=== PATIENT | female | born 1930 | race Caucasian/White ===

== ENCOUNTER 2016-08-26 10:46 | Outpatient (CLI) | payer MEDICARE ==
[2016-08-26 12:42] LABS: #Eosinphils 0.1 thou/uL (0.0-0.7); #Monocytes 0.3 thou/uL (0.11-0.59); #Neutrophils 3.6 thou/uL (1.40-6.50); %Basophils 0.4 % (0.0-1.0); %Eosinophils 2.4 % (0.0-10.0); %Lymphocytes 19.6 % (21.0-51.0); Hematocrit 36.9 % (36.0-47.0); Mean Platelet Volume 6.2 fL (7.4-10.4); Red Blood Cell (RBC) Count 3.84 mill/uL (4.20-5.40)
== END 2016-08-26 10:47 | disposition home or self-care (01) ==
LOC: NAVSJIPCSP 10:46
PROVIDERS: ATTEND Internal Medicine
DX: K92.1 Melena (principal)
CPT/HCPCS: 36415; 85025

== ENCOUNTER 2016-08-27 14:14 | Outpatient (CLI) | payer MEDICARE | END 2016-08-27 14:15 | disposition home or self-care (01) | LOC: NAVSJIPCSP 14:14 | PROVIDERS: ATTEND Internal Medicine | DX: K92.1 Melena (principal) | CPT/HCPCS: 82270 ==

== ENCOUNTER 2016-08-28 07:54 | Outpatient (CLI) | payer MEDICARE | END 2016-08-28 07:55 | disposition home or self-care (01) | LOC: NAV EKG 07:54 | PROVIDERS: ATTEND Internal Medicine | DX: R63.4 Abnormal weight loss (principal) | CPT/HCPCS: 93005 ==

== ENCOUNTER 2016-09-04 11:46 | Outpatient (CLI) | payer MEDICARE ==
[2016-09-04 12:40] LABS: ALT (SGPT) 12 U/L (0-55); AST (SGOT) 15 U/L (5-34); Alkaline Phosphatase 60 U/L (40-150); Amylase 29 U/L (20-160); Anion Gap 13 mmol/L (10-20); BUN (Urea Nitrogen) 12 mg/dL (9.8-20.1); Bilirubin, Total 0.3 mg/dL (0.2-1.2); Calc. Creatinine Clearance 0 mL/min (70-130); Calcium 9.4 mg/dL (7.8-10.44); Carbon Dioxide 29 mmol/L (23-31); Chloride 104 mmol/L (98-107); Estimated GFR-MDRD 73; Globulin 2.4 g/dL (2.4-3.5)
== END 2016-09-04 11:47 | disposition home or self-care (01) ==
LOC: NAVSJIPCSP 11:46
PROVIDERS: ATTEND Internal Medicine Gastroenterology
DX: R10.31 Right lower quadrant pain (principal)
CPT/HCPCS: 36415; 80053; 82150

== ENCOUNTER 2016-10-15 13:53 | Outpatient (CLI) | payer MEDICARE | END 2016-10-15 13:54 | disposition home or self-care (01) | LOC: NAVSJIPCSP 13:53 | PROVIDERS: ATTEND Internal Medicine Gastroenterology | DX: R19.7 Diarrhea, unspecified (principal) | CPT/HCPCS: 36415; 83516 ==

== ENCOUNTER 2017-08-05 14:57 | Outpatient (CLI) | payer MEDICARE | END 2017-08-05 14:58 | disposition home or self-care (01) | LOC: NAV ULT 14:57 | PROVIDERS: ATTEND Internal Medicine | DX: I48.0 Paroxysmal atrial fibrillation (principal); I08.3 Combined rheumatic disorders of mitral, aortic and tricuspid valves | CPT/HCPCS: 93306 ==

== ENCOUNTER 2017-10-30 19:50 | Emergency (ER) | payer MEDICARE ==
[2017-10-30 20:45] LABS: #Eosinphils 0.1 thou/uL (0.0-0.7); #Lymphocytes 1.3 thou/uL (1.20-3.40); #Monocytes 0.3 thou/uL (0.11-0.59); #Neutrophils 2.5 thou/uL (1.40-6.50); %Basophils 0.9 % (0.0-1.0); %Eosinophils 2.3 % (0.0-10.0); %Lymphocytes 31.2 % (21.0-51.0); %Monocytes 7.5 % (0.0-10.0); %Neutrophils 58.1 % (42.0-75.0); Hemoglobin 10.3 g/dL (12.0-16.0); Mean Corpuscular HGB CONC 31.9 g/dL (32.0-36.0); Mean Corpuscular Hemoglobin 29.6 pg (27.0-31.0); Mean Platelet Volume 5.8 fL (7.4-10.4); Platelet Count 132 thou/uL (130-400); RBC Distribution Width 13.9 % (11.5-14.5); Red Blood Cell (RBC) Count 3.49 mill/uL (4.20-5.40); White Blood Cell (WBC) Count 4.2 thou/uL (4.8-10.8)
[2017-10-30 20:50] LABS: INR-International Normal Ratio 1.1; Prothrombin Time 13.8 SEC (12.0-14.7)
[2017-10-30 20:51] LABS: PTT 33.3 SEC (22.9-36.1)
[2017-10-30] MEDS ORDERED: HYDROcodone/Acetaminophen 5/325 mg Tablet ONE (20:53)
== END 2017-10-30 21:05 | disposition home or self-care (01) ==
LOC: NAV ERS 19:50
DX: H11.411 Vascular abnormalities of conjunctiva, right eye (principal); I25.10 Atherosclerotic heart disease of native coronary artery without angina pectoris; I11.0 Hypertensive heart disease with heart failure; I50.9 Heart failure, unspecified; I48.91 Unspecified atrial fibrillation; E11.9 Type 2 diabetes mellitus without complications; E78.5 Hyperlipidemia, unspecified; Z87.891 Personal history of nicotine dependence; Z79.899 Other long term (current) drug therapy
CPT/HCPCS: 85025; 85610; 85730; 99283

== ENCOUNTER 2018-04-28 16:15 | Outpatient (CLI) | payer MEDICARE ==
[~2018-04-28 16:15] MED LIST: Iopamidol 370 76% 100 ML VIAL ONE
--- NOTE | 2018-04-28 19:57 | CT ---
CONTRAST ENHANCED CT IMAGES ABDOMEN AND PELVIS 04/28/18 HISTORY: 88-year-old who presents with history of loss of appetite and abdominal distention. Contrast enhanced CT images of the abdomen and pelvis is obtained after administration of IV contrast . There is extensive calcification of the mitral annulus. Aortic valvular calcifications also seen. Cor onary artery calcifications seen. There is a granuloma in the right lower lobe of the lung. The liver and spleen are unremarkable. The gallbladder has been surgically removed. The pancreas is u nremarkable. Adrenals glands and kidneys are unremarkable. Atherosclerotic calcification of the abdominal aorta is seen. No significant evidence of lymphadenopathy seen. Multilevel lumbar degenerative changes seen. Moderate degree of colonic distention is seen. Osseous structures are otherwise unremarkable. IMPRESSION: No significant evidence of intra-abdominal or pelvic pathology seen. POS: [facility]
== END 2018-04-28 16:16 | disposition home or self-care (01) ==
LOC: NAV CT 16:15
PROVIDERS: ATTEND Internal Medicine
DX: D61.818 Other pancytopenia (principal); R14.0 Abdominal distension (gaseous)
CPT/HCPCS: 74177; 82565

== ENCOUNTER 2018-05-03 14:13 | Outpatient (CLI) | payer MEDICARE ==
[2018-05-03 14:32] LABS: #Eosinphils 0.1 thou/uL (0.0-0.7); #Lymphocytes 1.1 thou/uL (1.20-3.40); #Monocytes 0.2 thou/uL (0.11-0.59); #Neutrophils 1.2 thou/uL (1.40-6.50); %Basophils 0.7 % (0.0-1.0); %Eosinophils 4.2 % (0.0-10.0); Hemoglobin 10.2 g/dL (12.0-16.0); Mean Corpuscular HGB CONC 30.6 g/dL (32.0-36.0); Mean Corpuscular Hemoglobin 29.6 pg (27.0-31.0); Mean Corpuscular Volume 96.6 fL (78.0-98.0); Mean Platelet Volume 6.6 fL (7.4-10.4); Platelet Count 128 thou/uL (130-400); RBC Distribution Width 13.3 % (11.5-14.5); Red Blood Cell (RBC) Count 3.47 mill/uL (4.20-5.40); White Blood Cell (WBC) Count 2.7 thou/uL (4.8-10.8)
== END 2018-05-03 14:14 | disposition home or self-care (01) ==
LOC: NAV LAB 14:13
PROVIDERS: ATTEND Internal Medicine
DX: D64.9 Anemia, unspecified (principal)
CPT/HCPCS: 36415

== ENCOUNTER 2018-08-07 08:07 | Emergency (ER) | payer MEDICARE ==
--- NOTE | 2018-08-07 11:02 | RAD ---
CHEST 2 VIEWS: HISTORY: Cough. Fever. FINDINGS: Cardiac silhouette and pulmonary vasculature are upper limits of normal. Mediastinum is midline with aortic calcification. Lungs are hyperinflated. Flattening of each hemidiaphragm. No confluent air space consolidation, pneumothorax, or pleural fluid. Calcified granulomata are consistent with heale d granulomatous disease. IMPRESSION: 1. Pulmonary hyperinflation, likely related to chronic obstructive pulmonary disease. 2. Atherosclerosis. POS: [facility]
== END 2018-08-07 09:16 | disposition home or self-care (01) ==
LOC: NAV ERS 08:07
DX: J20.9 Acute bronchitis, unspecified (principal); I25.10 Atherosclerotic heart disease of native coronary artery without angina pectoris; I48.91 Unspecified atrial fibrillation; E11.9 Type 2 diabetes mellitus without complications; E78.5 Hyperlipidemia, unspecified; I11.0 Hypertensive heart disease with heart failure; I50.9 Heart failure, unspecified; Z87.891 Personal history of nicotine dependence; Z79.899 Other long term (current) drug therapy
CPT/HCPCS: 71046